=== PATIENT | female | born 1950 | race Caucasian/White ===

== ENCOUNTER 2021-10-21 12:05 | Inpatient (IN) ==
[2021-10-21] MEDS ORDERED: SODIUM CHLORIDE 0.9% 1,000 ML IV STA (12:49)
[2021-10-21] MEDS ORDERED: ONDANSETRON 4 MG/2 ML VIAL IV STA (12:49)
[2021-10-21 13:23] LABS: Basophils # 0.1 10*3/uL (0.0-0.2); Basophils % 0.6 % (0.0-0.8); Eosinophils % 0.3 % (0.00-10.9); Hematocrit 36.5 VOL% (35.7-47.0); Hemoglobin 12.1 GM/DL (12.0-16.0); Immature Granulocytes % 0.3 %; Immature Granulocytes Absolute 0.03 #; Lymphocytes # 1.4 10*3/uL (1.4-4.0); Lymphocytes % 14.5 % (21.3-54.2); Mean Corpuscular HGB Conc 33.2 GM/DL (32-36); Mean Corpuscular Volume 95.8 FL (87-102); Mean Platelet Volume 8.6 FL (9.6-12.0); Monocytes % 9.4 % (1.7-12.7); Neutrophils % 74.9 % (38.7-73.9); Platelet Count 417 T/CUMM (130-400); Red Blood Count 3.81 MC/CUMM (3.8-5.5); Red Cell Distribution Width 13.7 % (9.3-17.3); White Blood Count 9.4 T/CUMM (4-12)
[2021-10-21 13:42] LABS: Barbiturates Screen,Urine Negative (Negative); Benzodiazepines Screen,Urine Negative (Negative); Cannabinoid Screen,Urine Negative (Negative); Opiate Screen,Urine Negative (Negative); Phencyclidine Screen,Urine Negative (Negative)
[2021-10-21 13:43] LABS: Bacteria,Urine Occasional /HPF (Few); RBC,Urine 5 /HPF (0-4); Squamous Epithelial Cell,Urine Occasional /HPF (0-10)
[2021-10-21 13:44] LABS: Glucose,Urine (UA) Negative (Negative); Urine Appearance Clear (Clear); Urine Color Light Yellow (Yellow); Urine pH 5.5 (4.5-8.0)
[2021-10-21 13:45] LABS: Bilirubin,Urine Negative (Negative); Blood, Urine Negative (Negative); Ketones,Urine Negative (Negative); Urine Urobilinogen < 2.0 eU/dL (<2.0)
[2021-10-21 13:46] LABS: Nitrite,Urine Positive (Negative); Protein,Urine Negative (Negative)
[2021-10-21 13:53] LABS: Alanine Aminotransferase 15 U/L (13-56); Albumin 3.7 G/DL (3.4-5.0); Alkaline Phosphatase 111 U/L (45-117); Aspartate Amino Transferase 20 U/L (0-37); Bilirubin,Total < 0.39 MG/DL (0.20-1.00); Blood Urea Nitrogen 10 MG/DL (7-18); Calcium 9.6 MG/DL (8.5-10.1); Carbon Dioxide 27 MMOL/L (21-32); Estimated Glom Filtration Rate 79 ML/MIN; Glucose 116 MG/DL (74-106); Osmolality,Calculated 252.4 MOS/KG (273-304); Potassium 4.2 MMOL/L (3.5-5.1); Sodium 126 MMOL/L (136-145); Total Protein 7.3 G/DL (6.4-8.2)
[2021-10-21] MEDS ORDERED: cefTRIAXone 1,000 MG in SODIUM CHLORIDE 0.9% 100 ML IV STA (13:55)
[2021-10-21] MEDS ORDERED: ACETAMINOPHEN 325 MG TABLET PO PRN (15:27)
[2021-10-21] MEDS ORDERED: ONDANSETRON 4 MG/2 ML VIAL IV PRN (15:27)
[2021-10-21] MEDS ORDERED: GLUCAGON 1 MG VIAL IM PRN (15:27)
[2021-10-21] MEDS ORDERED: DEXTROSE 10% 250 ML BAG IV PRN (15:35)
[2021-10-21] MEDS: SODIUM CHLORIDE 0.9% 1,000 ML IV SCH (16:04)
[2021-10-21] MEDS ORDERED: ENOXAPARIN 40 MG/0.4 ML SYRINGE SUBCUT SCH (17:00)
[2021-10-21 19:23] LABS: Calcium 8.7 MG/DL (8.5-10.1); Osmolality,Calculated 263.4 MOS/KG (273-304); Potassium 4.1 MMOL/L (3.5-5.1)
[2021-10-21] MEDS: NICOTINE 21 MG/24 HR PATCH TRANSDERM PRN (20:29)
[2021-10-22 05:25] LABS: Albumin 2.8 G/DL (3.4-5.0); Bilirubin,Total 0.5 MG/DL (0.20-1.00); Calcium 8.7 MG/DL (8.5-10.1); Osmolality,Calculated 267.1 MOS/KG (273-304); Potassium 5.7 MMOL/L (3.5-5.1); Total Protein 5.9 G/DL (6.4-8.2)
[2021-10-22 06:03] LABS: Basophils % 0.6 % (0.0-0.8); Eosinophils # 0.1 10*3/uL (0.0-0.87); Eosinophils % 1.3 % (0.00-10.9); Hematocrit 31.2 VOL% (35.7-47.0); Immature Granulocytes % 0.3 %; Immature Granulocytes Absolute 0.02 #; Lymphocytes # 1.4 10*3/uL (1.4-4.0); Lymphocytes % 21.3 % (21.3-54.2); Mean Corpuscular HGB Conc 32.4 GM/DL (32-36); Mean Platelet Volume 8.5 FL (9.6-12.0); Monocytes % 7.5 % (1.7-12.7); Red Blood Count 3.25 MC/CUMM (3.8-5.5); Red Cell Distribution Width 13.9 % (9.3-17.3); White Blood Count 6.7 T/CUMM (4-12)
[2021-10-22 06:05] LABS: Hemoglobin 10.1 GM/DL (12.0-16.0); Platelet Count 332 T/CUMM (130-400)
[2021-10-22 06:12] LABS: Eosinophils 1 % (0-10); Lymphocytes 15 % (20-55); Segmented Neutrophils 78 % (50-85); Total Cells Counted 100
[2021-10-22 06:13] LABS: Hypochromia Slight; Microcytosis 1+; Ovalocytes Slight; Platelet Estimate Normal
[2021-10-22] MEDS: PANTOPRAZOLE 40 MG TABLET PO SCH ×2 (08:48→20:54)
[2021-10-22] MEDS: SODIUM CHLORIDE 0.9% 1,000 ML IV SCH ×3 (10:22→20:53)
[2021-10-22] MEDS: DOCUSATE SODIUM 100 MG CAPSULE PO SCH ×2 (13:36→20:50)
[2021-10-22] MEDS: cefTRIAXone 1,000 MG in SODIUM CHLORIDE 0.9% 100 ML IV SCH (13:38)
[2021-10-22] MEDS: POLYETHYLENE GLYCOL POWDER 17 GM PACK PO SCH ×2 (13:40→20:50)
[2021-10-22] MEDS: MEGESTROL 40 MG TABLET PO SCH ×2 (16:10→20:51)
[2021-10-22] MEDS: FLUTICASONE 50 MCG NASAL SPRAY 16 GM BOTTLE BOTH NARES SCH ×2 (16:11→20:56)
[2021-10-22] MEDS: METOPROLOL TARTRATE 25 MG TABLET PO SCH ×2 (16:11→20:50)
[2021-10-22] MEDS: MIRTAZAPINE 15 MG TABLET PO SCH (20:50)
[2021-10-23 06:42] LABS: HIV Antigen/Antibody Result Nonreactive (Nonreactive)
[2021-10-23] MEDS: SODIUM CHLORIDE 0.9% 1,000 ML IV SCH (07:41)
[2021-10-23] MEDS: cefTRIAXone 1,000 MG in SODIUM CHLORIDE 0.9% 100 ML IV SCH (09:02)
[2021-10-23] MEDS: FLUTICASONE 50 MCG NASAL SPRAY 16 GM BOTTLE BOTH NARES SCH ×2 (10:14→21:22)
[2021-10-23] MEDS: DOCUSATE SODIUM 100 MG CAPSULE PO SCH ×2 (10:15→21:20)
[2021-10-23] MEDS: MEGESTROL 40 MG TABLET PO SCH ×2 (10:15→21:19)
[2021-10-23] MEDS: POLYETHYLENE GLYCOL POWDER 17 GM PACK PO SCH ×2 (10:15→23:20)
[2021-10-23] MEDS: PANTOPRAZOLE 40 MG TABLET PO SCH ×2 (10:15→21:20)
[2021-10-23] MEDS ORDERED: LIDOCAINE 2% 5 ML VIAL ONE (11:35)
[2021-10-23] MEDS ORDERED: propofoL 200 MG/20 ML VIAL IV ONE (11:35)
[2021-10-23] MEDS ORDERED: LABETALOL 20 MG/4 ML SYRINGE IV ONE (11:37)
[2021-10-23] MEDS: METOPROLOL TARTRATE 25 MG TABLET PO SCH ×2 (13:14→21:20)
[2021-10-23] MEDS: MULTIVITAMIN (BEROCCA) TABLET PO SCH (13:15)
[2021-10-23] MEDS: busPIRone 5 MG TABLET PO PRN (16:32)
[2021-10-23] MEDS ORDERED: SENNA 8.6 MG TABLET PO SCH (21:00)
[2021-10-23] MEDS: MIRTAZAPINE 15 MG TABLET PO SCH (21:19)
[2021-10-23] MEDS: LUBIPROSTONE 8 MCG CAPSULE PO SCH (21:19)
[2021-10-24] MEDS: SODIUM CHLORIDE 0.9% 1,000 ML IV SCH (01:08)
[2021-10-24] MEDS: busPIRone 5 MG TABLET PO PRN (06:06)
[2021-10-24 06:19] LABS: Calcium 8.8 MG/DL (8.5-10.1); Osmolality,Calculated 276.4 MOS/KG (273-304); Potassium 3.8 MMOL/L (3.5-5.1)
[2021-10-24 06:23] LABS: Basophils % 0.6 % (0.0-0.8); Eosinophils # 0.1 10*3/uL (0.0-0.87); Eosinophils % 1.7 % (0.00-10.9); Hematocrit 36.3 VOL% (35.7-47.0); Hemoglobin 12.5 GM/DL (12.0-16.0); Immature Granulocytes % 0.4 %; Immature Granulocytes Absolute 0.02 #; Lymphocytes # 1.3 10*3/uL (1.4-4.0); Lymphocytes % 23.7 % (21.3-54.2); Mean Corpuscular HGB Conc 34.4 GM/DL (32-36); Mean Corpuscular Volume 93.1 FL (87-102); Mean Platelet Volume 8.6 FL (9.6-12.0); Monocytes % 8.5 % (1.7-12.7); Neutrophils % 65.1 % (38.7-73.9); Platelet Count 274 T/CUMM (130-400); Red Cell Distribution Width 14.1 % (9.3-17.3); White Blood Count 5.3 T/CUMM (4-12)
[2021-10-24 06:41] LABS: Lymphocytes 30 % (20-55); Segmented Neutrophils 63 % (50-85); Total Cells Counted 100
[2021-10-24 06:42] LABS: Microcytosis 1+
[2021-10-24] MEDS: cefTRIAXone 1,000 MG in SODIUM CHLORIDE 0.9% 100 ML IV SCH (08:53)
[2021-10-24] MEDS: PANTOPRAZOLE 40 MG TABLET PO SCH (08:54)
[2021-10-24] MEDS: LUBIPROSTONE 8 MCG CAPSULE PO SCH (08:54)
[2021-10-24] MEDS: MEGESTROL 40 MG TABLET PO SCH (08:54)
[2021-10-24] MEDS: METOPROLOL TARTRATE 25 MG TABLET PO SCH (08:54)
[2021-10-24] MEDS: MULTIVITAMIN (BEROCCA) TABLET PO SCH (08:54)
[2021-10-24] MEDS: DOCUSATE SODIUM 100 MG CAPSULE PO SCH (08:54)
[2021-10-24] MEDS: FLUTICASONE 50 MCG NASAL SPRAY 16 GM BOTTLE BOTH NARES SCH (10:07)
[2021-10-24] MEDS: POLYETHYLENE GLYCOL POWDER 17 GM PACK PO SCH (10:07)
[2021-10-24] MEDS: NICOTINE 21 MG/24 HR PATCH TRANSDERM PRN (10:49)
[2021-10-24] MEDS ORDERED: METHENAMINE HIPPURATE 1 GM TABLET PO SCH (11:00)
[2021-10-24] MEDS ORDERED: ASCORBIC ACID 500 MG TABLET PO SCH (11:00)
[2021-10-24 11:37] VITALS: BP 152/68
[2021-10-25] MEDS ORDERED: LEVOFLOXACIN 500 MG TABLET PO SCH (09:00)
== END 2021-10-24 12:45 | disposition home or self-care (01) | DRG 392 ==
LOC: N.ED 12:05 → SUATTDRO 15:27 → N.EDINP 15:27 → N.5E 17:17
PROVIDERS: ADMIT Phlebology; ATTEND Hospitalist